=== PATIENT | male | born 1970 ===

== ENCOUNTER 2016-09-04 18:05 | Emergency (ER) | payer OTHER, SELFPAY ==
[2016-09-04 18:30] VITALS: BMI 26.9
[2016-09-04 18:35] VITALS: BP 124/83; PULSE 92; RESP 18; TEMP 98.6; O2SAT 97
--- NOTE | 2016-09-04 19:39 | C.PDOC ---
History Of Present Illness 45 year old patient presents to the ED complaining of a sudden onset of sharp pain on the left side of his chest yesterday s/p lifting weights at the gym. Patient states the pain is on the left side ribs, starting at the nipple line, and radiating to the back. He denies shortness of breath, dizziness, light headedness, nausea or vomiting. He has been taking Ibuprofen which temporarily relieves the pain, but then it recurs each time. Patient reports it hurts to take a breath. Time Seen by Provider: 09/04/16 19:05 Chief Complaint (Nursing): Rib Injury History Per: Patient History/Exam Limitations: no limitations Onset/Duration Of Symptoms: Days (yesterday) Current Symptoms Are (Timing): Still Present Context: Other (lifting weights at the gym) Severity: Mild Pain Scale Rating Of: 3 Quality: Sharp, "Pain" Exacerbating Factors: Deep Breathing Alleviating Factors: None Recent travel outside of the [place]: No Past Medical History Reviewed: Historical Data, Nursing Documentation, Vital Signs Vital Signs: Last Vital Signs Temp 98.6 F 09/04/16 18:30 Pulse 92 H 09/04/16 18:30 Resp 18 09/04/16 18:30 BP 124/83 09/04/16 18:30 Pulse Ox 97 09/04/16 19:46 - Medical History PMH: Asthma Family History: States: Unknown Family Hx - Social History Hx Tobacco Use: No Hx Alcohol Use: Yes Hx Substance Use: No - Immunization History Hx Tetanus Toxoid Vaccination: No Hx Influenza Vaccination: No (2014) Hx Pneumococcal Vaccination: Yes (2014) Review Of Systems Except As Marked, All Systems Reviewed And Found Negative. Cardiovascular: Positive for: Chest Pain. Negative for: Light Headedness Respiratory: Negative for: Shortness of Breath Gastrointestinal: Negative for: Nausea, Vomiting Neurological: Negative for: Dizziness Physical Exam - Physical Exam Appears: Non-toxic, No Acute Distress Skin: Warm, Dry Head: Atraumatic, Normacephalic Eye(s): bilateral: Normal Inspection, PERRL, EOMI Oral Mucosa: Moist Neck: Normal ROM, Supple Chest: Symmetrical, Tenderness (point tenderness medial to the left nipple to the anterior chest wall over the 6th rib) Cardiovascular: Rhythm Regular Respiratory: Normal Breath Sounds, No Rales, No Rhonchi, No Wheezing Gastrointestinal/Abdominal: Soft, No Tenderness, No Guarding, No Rebound Back: Normal Inspection, No CVA Tenderness Extremity: Normal ROM Neurological/Psych: Oriented x3, Normal Speech, Normal Cognition, Normal Motor, Normal Sensation Gait: Steady ED Course And Treatment ECG: Interpreted By Me ECG Rhythm: Sinus Rhythm (with diffuse repolarization) O2 Sat by Pulse Oximetry: 97 (room air) Pulse Ox Interpretation: Normal - Other Rad Rib xray X-Ray: Interpreted by Me Interpretation: No evidence for fracture, pneumothorax or effusion Reevaluation Time: 19:58 Reassessment Condition: Improved Medical Decision Making Medical Decision Making: Plan: * EKG * left Ribs/Chest x-ray Disposition Counseled Patient/Family Regarding: Studies Performed, Diagnosis, Need For Followup - Disposition Disposition: HOME/ ROUTINE Disposition Time: 19:58 Condition: STABLE Additional Instructions: Continue taking Ibuprophen 3 tablets every 6 hours with food if needed for pain. Instructions: Chest Wall Pain (ED), Musculoskeletal Pain (ED) - Clinical Impression Clinical Impression: Chest wall pain, Muscle strain of anterior chest wall - Scribe Statement The provider has reviewed the documentation as recorded by the Colleenibalondra Luz Provider Attestation: All medical record entries made by the Colleenibe were at my direction and personally dictated by me. I have reviewed the chart and agree that the record accurately reflects my personal performance of the history, physical exam, medical decision making, and the department course for this patient. I have also personally directed, reviewed, and agree with the discharge instructions and disposition.
--- NOTE | 2016-09-05 08:48 | RAD ---
PROCEDURE: Radiographs of the Chest and Left Ribs. HISTORY: pain COMPARISON: None available. TECHNIQUE: Frontal radiograph of the chest and multiple oblique radiographs of the left ribs were obtained. FINDINGS: LEFT RIBS: No fracture or focal lesion visualized. LUNGS: Clear. PLEURA: No pneumothorax or pleural fluid. CARDIOVASCULAR: Normal sized heart. No pulmonary vascular congestion. OTHER FINDINGS: None. IMPRESSION: Unremarkable radiographs of the chest and left ribs. No left rib fracture.
== END 2016-09-04 20:12 | disposition home or self-care (01) ==
LOC: C.ER 18:05
DX: S29.011A Strain of muscle and tendon of front wall of thorax, initial encounter (principal); X50.0XXA Overexertion from strenuous movement or load, initial encounter; Y93.89 Activity, other specified; Y92.39 Other specified sports and athletic area as the place of occurrence of the external cause; R07.89 Other chest pain

== ENCOUNTER 2016-10-13 19:26 | Emergency (ER) | payer SELFPAY ==
[2016-10-13 19:27] VITALS: BMI 26.9
[2016-10-13 19:42] VITALS: BP 112/75; PULSE 89; RESP 16; TEMP 99.9; O2SAT 98
--- NOTE | 2016-10-13 20:19 | C.PDOC ---
History Of Present Illness Patient is a 45 y/o male, whose PMHx includes asthma, presents to the ED for evaluation of subjective fever, and sore throat for the last 2 days. Pt also complains of enlarged cervical nodes. Notes taking Tylenol 2 hours [employer]. Otherwise, denies any cough, nasal congestion, rhinorrhea, n/v/d, abdominal pain , or any other associated symptoms at this time. Time Seen by Provider: 10/13/16 19:48 Chief Complaint (Nursing): ENT Problem History Per: Patient History/Exam Limitations: no limitations Onset/Duration Of Symptoms: Days (2) Current Symptoms Are (Timing): Still Present Location Of Pain: Throat Sick Contacts (Context): None Associated Symptoms: Fever, Sore Throat. denies: Cough, Sputum, Neck Pain, Sinus Drainage, Myalgias, Nasal Congestion, Nausea, Vomiting, Diarrhea Ear Symptoms: Bilateral: None Recent travel outside of the [place]: No Additional History Per: Patient Past Medical History Reviewed: Historical Data, Nursing Documentation, Vital Signs Vital Signs: Last Vital Signs Temp 99.9 F H 10/13/16 19:38 Pulse 89 10/13/16 19:38 Resp 16 10/13/16 19:38 BP 112/75 10/13/16 19:38 Pulse Ox 98 10/13/16 20:59 - Medical History PMH: Asthma Family History: States: Unknown Family Hx - Social History Hx Tobacco Use: No Hx Alcohol Use: Yes Hx Substance Use: No - Immunization History Hx Tetanus Toxoid Vaccination: No Hx Influenza Vaccination: No (2014) Hx Pneumococcal Vaccination: Yes (2014) Review Of Systems Except As Marked, All Systems Reviewed And Found Negative. Constitutional: Positive for: Fever ENT: Positive for: Throat Pain. Negative for: Ear Pain, Nose Discharge, Nose Congestion, Mouth Pain, Throat Swelling Respiratory: Negative for: Cough, Shortness of Breath, Sputum Musculoskeletal: Negative for: Neck Pain Skin: Negative for: Rash Physical Exam - Physical Exam Appears: Non-toxic, No Acute Distress Skin: Normal Color, Warm, Dry, No Rash Head: Atraumatic, Normacephalic Eye(s): bilateral: Normal Inspection, PERRL Ear(s): Bilateral: Normal Nose: Normal, No Discharge Oral Mucosa: Moist, No Drooling Tongue: Normal Appearing Lips: Normal Appearing Throat: No Exudate, No Drooling, Other (enlarged erythematous tonsils) Neck: Normal, Normal ROM, Supple Lymphatic: Adenopathy (tender cervical lymphadenopathy) Cardiovascular: Rhythm Regular Respiratory: Normal Breath Sounds, No Rales, No Rhonchi, No Wheezing Neurological/Psych: Oriented x3, Normal Speech ED Course And Treatment O2 Sat by Pulse Oximetry: 98 (RA) Pulse Ox Interpretation: Normal Progress Note: Patient is being discharged home, and is instructed to f/u with PMD in 1-2 days. Disposition Counseled Patient/Family Regarding: Diagnosis, Need For Followup - Disposition Disposition: HOME/ ROUTINE Disposition Time: 20:19 Condition: STABLE Additional Instructions: Please follow up with PMD Take meds as directed Increase PO fluids Return to ER if worse Prescriptions: Amoxicillin 500 mg PO TID #21 tab Ibuprofen [Motrin] 600 mg PO Q6H #30 tab Instructions: Pharyngitis (ED) Forms: Work Excuse Print Language: GUYANESE - Clinical Impression Clinical Impression: Pharyngitis, Lymphadenopathy - PA / [employer]ESSOR / Resident Statement MD/DO has reviewed & agrees with the documentation as recorded. - Scribe Statement The provider has reviewed the documentation as recorded by the Colleenibalondra Luz All medical record entries made by the Lorrie were at my direction and personally dictated by me. I have reviewed the chart and agree that the record accurately reflects my personal performance of the history, physical exam, medical decision making, and the department course for this patient. I have also personally directed, reviewed, and agree with the discharge instructions and disposition.
== END 2016-10-13 20:30 | disposition home or self-care (01) ==
LOC: C.ER 19:26
DX: J02.9 Acute pharyngitis, unspecified (principal); R59.1 Generalized enlarged lymph nodes